=== PATIENT | female | born 1940 | race African-American/Black ===

== ENCOUNTER → 2016-07-11 | Outpatient (CLI) | payer OTHER ==
[~2016-07-11] MED LIST: ALPRAZOLAM 0.0.25 M1 PO; AMLODIPINE; APAP650 PO; CHLORTHALIDONE25 MG PO; COD LIVER OIL1 EACH PO; DAILY VALUE1 EACH PO; FISHOIL; IBUPROFEN 200200 M1 PO; IBUPROFEN 800800 MG PO; MACRODANTIN100 MG PO; SYNTHROID88 MCG PO; VITAMINC500 PO
== END ==
LOC: RAD 14:15
DX: Z12.31 Encounter for screening mammogram for malignant neoplasm of breast (principal)

== ENCOUNTER → 2018-08-23 | Outpatient (CLI) | payer OTHER | LOC: RAD 01:22 | DX: Z12.31 Encounter for screening mammogram for malignant neoplasm of breast (principal) ==

== ENCOUNTER → 2019-08-28 | Outpatient (CLI) | payer OTHER | LOC: BC 11:15 | DX: Z12.31 Encounter for screening mammogram for malignant neoplasm of breast (principal); N64.89 Other specified disorders of breast ==